=== PATIENT | female | born 1985 | race Hispanic/Latino ===

== ENCOUNTER 2018-02-20 18:17 | Emergency (ER) | payer BC, OTHER ==
[2018-02-20 18:23] VITALS: O2SAT 100
[2018-02-20 19:39] LABS: BASO # 0.1 K/uL (0.0-0.2); BASO % 0.6 % (0.0-2.0); EOS # 0.1 K/uL (0.0-0.7); HEMOGLOBIN 14.8 g/dL (12.0-16.0); LYMPH # 3.1 K/uL (1.0-4.3); LYMPH % 30.6 % (20.0-40.0); MEAN CELL VOLUME 89.8 fl (81.0-99.0); MEAN CORPUSCULAR HEMOGLOBIN 30.2 pg (27.0-31.0); MEAN CORPUSCULAR HGB CONC 33.6 g/dL (33.0-37.0); MEAN PLATELET VOLUME 8.7 fl (7.2-11.7); MONO # 0.7 K/uL (0.0-0.8); NEUT # 6.2 K/uL (1.8-7.0); NEUT % 60.8 % (50.0-75.0); RBC 4.9 Mil/uL (3.80-5.20); RED CELL DISTRIBUTION WIDTH 12.7 % (11.5-14.5); WHITE BLOOD COUNT 10.2 K/uL (4.8-10.8)
[2018-02-20] MEDS ORDERED: Naproxen 500 MG TAB PO STA (19:41)
[2018-02-20] MEDS ORDERED: Naproxen 500 MG TAB PO ONE (19:56)
[2018-02-20 20:11] LABS: BLOOD UREA NITROGEN 8 mg/dl (7-17); CALCIUM 9.3 mg/dL (8.4-10.2); GFR NON-AFRICAN AMERICAN > 60
--- NOTE | 2018-02-20 20:13 | ED PDOC ---
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 Pain feels like a stabbing pain to the left chest with inspiration. Does not notice a change with position. Denies radiation, SOB, recent illness, or swelling of extremities. PMD: Kulwinder Ness MD Past Medical History Reviewed: Historical Data, Nursing Documentation, Vital Signs Vital Signs: Last Vital Signs Temp 97.7 F 02/20/18 18:19 Pulse 66 02/20/18 18:19 Resp 18 02/20/18 18:19 BP 137/77 02/20/18 18:19 Pulse Ox 100 02/20/18 18:19 - Medical History Other PMH: ADD - Surgical History Surgical History: No Surg Hx - Family History Family History: States: Unknown Family Hx - Social History Current smoker - smoking cessation education provided: No Alcohol: None Drugs: Denies - Home Medications Home Medications: Ambulatory Orders Medication Instructions Recorded RX: Naproxen 500 mg PO BID #14 tab 02/20/18 - Allergies Allergies/Adverse Reactions: Allergies Allergy/AdvReac Type Severity Reaction Status Date / Time No Known Allergies Allergy Verified 02/20/18 18:19 Review of Systems ROS Statement: Except As Marked, All Systems Reviewed And Found Negative Cardiovascular: Positive for: Chest Pain (left sided) Respiratory: Negative for: Shortness of Breath Musculoskeletal: Negative for: Other (Swelling of extremities) Physical Exam - Reviewed Nursing Documentation Reviewed: Yes Vital Signs Reviewed: Yes - Physical Exam Appears: Positive for: Non-toxic, No Acute Distress Head Exam: Positive for: ATRAUMATIC, NORMOCEPHALIC Skin: Positive for: Normal Color, Warm, Dry. Negative for: Cyanosis Eye Exam: Positive for: Normal appearance Neck: Positive for: Normal, Painless ROM Cardiovascular/Chest: Positive for: Regular Rate, Rhythm. Negative for: Murmur Respiratory: Positive for: Normal Breath Sounds. Negative for: Wheezing, Respiratory Distress Extremity: Positive for: Normal ROM. Negative for: Other (Pain on calf squeeze or edema on extremities) Neurologic/Psych: Positive for: Alert, Oriented. Negative for: Motor/Sensory Deficits - Laboratory Results Result Diagrams: 02/20/18 19:33 02/20/18 19:33 - ECG O2 Sat by Pulse Oximetry: 100 (RA) Pulse Ox Interpretation: Normal Medical Decision Making Medical Decision Making: Initial Impression: Atypical chest pain, low suspicion for cardiac etiology. Initial Plan: --ECG --BMP --Troponin CBC --Chest X-ray --Naproxen 500mg PO for pain --Reevaluation 23:28 Upon provider reevaluation patient is feeling better with improvement in pain, troponin is 0, heart score is 0, is medically stable, and requires no further treatment in the ED at this time. Patient will be discharged with Rx for ibuprofen for pain. Counseling was provided and all questions were answered regarding diagnosis and need for follow up with PMD in 1x week. There is agreement to discharge plan. Return if symptoms persist or worsen. Scribe Attestation: Documented by Red John acting as a scribe for Johanny Titus MD. Provider Scribe Attestation: All medical record entries made by the Scribe were at my direction and personally dictated by me. I have reviewed the chart and agree that the record accurately reflects my personal performance of the history, physical exam, medical decision making, and the department course for this patient. I have also personally directed, reviewed, and agree with the discharge instructions and disposition. Scribe Attestation: Documented by Johanny Noyola acting as a scribe for Johanny Titus MD. Provider Scribe Attestation: All medical record entries made by the Scribe were at my direction and personally dictated by me. I have reviewed the chart and agree that the record accurately reflects my personal performance of the history, physical exam, medical decision making, and the department course for this patient. I have also personally directed, reviewed, and agree with the discharge instructions and disposition. Disposition - Clinical Impression Clinical Impression: Atypical chest pain - Disposition Disposition Time: 23:28 Condition: IMPROVED Additional Instructions: Take Naproxen twice daily for pain. Return to the emergency department if symptoms worsen or if new symptoms develop. Prescriptions: RX: Naproxen 500 mg PO BID #14 tab Forms: [employer] (Khmer) Print Language: SLOVENIAN
[2018-02-21 00:02] VITALS: BP 124/74; PULSE 84; RESP 16; TEMP 98.2
--- NOTE | 2018-02-21 06:58 | CARD ---
APPROVED REPORT Date of service: 02/20/2018 EKG Measurement Heart [id number] NM [id number] <Conclusion> Normal sinus rhythm with sinus arrhythmia Possible Left atrial enlargement RSR' or QR pattern in V1 suggests right ventricular conduction delay Borderline ECG
--- NOTE | 2018-02-21 10:16 | RAD ---
HISTORY: Chest pain COMPARISON: 07/20/2017. TECHNIQUE: Chest PA and lateral FINDINGS: LINES AND TUBES: None. LUNG AND PLEURA: The lungs are well inflated and clear. No pleural effusion or pneumothorax. HEART AND MEDIASTINUM: The heart is not enlarged. The hilar and mediastinal contours are within normal limits. SKELETAL STRUCTURES: The bony structures are within normal limits for the patient's age. VISUALIZED UPPER ABDOMEN: Normal. OTHER FINDINGS: None. IMPRESSION: No active pulmonary disease.
== END 2018-02-20 23:42 | disposition home or self-care (01) ==
LOC: H.ER 18:17
DX: R07.89 Other chest pain (principal)